=== PATIENT | female | born 1995 | race Caucasian/White ===

== ENCOUNTER 2023-08-20 12:13 | Emergency (ER) | payer SELFPAY ==
[~2023-08-20] VITALS: Ht 157.5 cm; Wt 58.1 kg
[2023-08-20 12:25] VITALS: O2SAT 99
[2023-08-20] MEDS ORDERED: ACET1TAB23 PO (13:28)
== END 2023-08-20 13:30 | disposition home or self-care (01) ==
LOC: ER 12:17
DX: S80.12XA Contusion of left lower leg, initial encounter (principal); S80.11XA Contusion of right lower leg, initial encounter; Z79.899 Other long term (current) drug therapy; W22.8XXA Striking against or struck by other objects, initial encounter; Y93.89 Activity, other specified; Y92.89 Other specified places as the place of occurrence of the external cause; Y99.8 Other external cause status
CPT/HCPCS: A4606; A4663